=== PATIENT | female | born 1985 | race Caucasian/White ===

== ENCOUNTER 2017-02-02 15:35 | Inpatient (IN) ==
[2017-02-02 17:45] LABS: BASO% 0.2 % (0.0-0.8); EOS# 0.03 X1000 (0.0-0.7); EOS% 0.3 % (0.0-10.0); HEMATOCRIT 32.3 % (37.0-47.0); HEMOGLOBIN 9.5 g/dL (12.0-16.0); IMM GRAN# 0.01 X1000 (0.0-0.04); IMM GRAN% 0.1 % (0.0-0.5); LYMPH# 1.49 X1000 (1.2-3.4); LYMPH% 13.5 % (20.5-51.1); MANUAL DIFF NEEDED? NO; MCHC 29.4 g/dL (33-37); MCV 74.8 FL (81-99); MONO# 0.69 X1000 (0.11-0.59); MONO% 6.3 % (1.7-9.3); MPV 8.8 FL (7.4-10.4); NEUT% 79.6 % (42.2-75.2); PLT 242 X1000 (130-400); RBC 4.32 XMIL (4.2-5.4)
[2017-02-02 18:19] LABS: AGAP 10; ALBUMIN 4.2 g/dL (3.5-5.0); ALKALINE PHOSPHATASE 106 U/L (32-104); AMYLASE 1712 U/L (20-200); BUN 10 mg/dL (8-22); CALCIUM 8.8 mg/dL (8.8-10.2); CHLORIDE 105 mmol/L (98-107); COSMO 276; GOT 15 U/L (10-30); GPT 9 U/L (10-36); LIPASE 1456 U/L (13-60); POTASSIUM 3.5 mmol/L (3.5-5.1); SODIUM 139 mmol/L (136-145); TCO2 25 mmol/L (25-35)
--- NOTE | 2017-02-02 19:24 | Diag Imaging Result Doc PS360 ---
US GB < RUQ (LIMITED) - 02/02/2017 INDICATION: pancreatitis TECHNIQUE: COMPARISON: None FINDINGS: The patient is not nothing by mouth. The pancreas is obscured. The liver, gallbladder, and right kidney are normal. No mass or fluid collection. Common bile duct measures 5 mm. Aorta, IVC and main portal vein are patent. IMPRESSION: No acute disease. Electronically signed by Sly Bazan 02/02/2017 7:22 PM
[2017-02-02] MEDS ORDERED: NS 1,000 ML IV ONE (20:08)
[2017-02-03] MEDS: DILAUDID IV PRN ×5 (00:11→21:29)
[2017-02-03] MEDS ORDERED: ZOFRAN IV ONE (00:57)
[2017-02-03] MEDS: NS 1,000 ML IV SCH ×2 (06:41→16:32)
[2017-02-03] MEDS ORDERED: SODIUM CHLORIDE 0.9% INJ SCH (07:00)
[2017-02-03] MEDS: ZOSYN 3.375 GM/NS 3.375 GM/50 ML IVPB IV SCH ×3 (07:39→18:41)
[2017-02-03] MEDS: ZOFRAN IV PRN ×3 (07:39→21:30)
[2017-02-03] MEDS: PROTONIX IV SCH (07:39)
--- NOTE | 2017-02-03 07:54 | Diag Imaging Result Doc PS360 ---
ABDOMEN/PELVIS W/CONTRAST - 02/02/2017 INDICATION: pain TECHNIQUE: A CT dose reduction protocol was used. COMPARISON: Previous ultrasound FINDINGS: The lung bases are clear and the heart size is normal. There has been prior gastric sleeve procedure. No bowel obstruction or inflammation. No free air or free fluid. The main pancreatic duct at the head is somewhat prominent but otherwise the pancreas is normal. No inflammatory changes. The liver, gallbladder, spleen, adrenals, and kidneys are normal. Urinary bladder, uterus, and rectum are normal. There are moderate degenerative changes of the spine. No acute or suspicious bony lesion. IMPRESSION: No acute disease. Electronically signed by Sly Bazan 02/03/2017 7:52 AM
[2017-02-03 08:18] LABS: HEMATOCRIT 29.3 % (37.0-47.0); HEMOGLOBIN 8.6 g/dL (12.0-16.0); MCH 21.9 PG (27-31); MCHC 29.4 g/dL (33-37); MCV 74.7 FL (81-99); MPV 9.5 FL (7.4-10.4); RBC 3.92 XMIL (4.2-5.4)
[2017-02-03 08:40] LABS: AGAP 8; ALBUMIN 3.5 g/dL (3.5-5.0); ALKALINE PHOSPHATASE 93 U/L (32-104); AMYLASE 621 U/L (20-200); BUN 6 mg/dL (8-22); CALCIUM 8.3 mg/dL (8.8-10.2); CHLORIDE 105 mmol/L (98-107); COSMO 269; GOT 12 U/L (10-30); GPT 7 U/L (10-36); HDL 46 mg/dL (45-65); LDL 39 mg/dL; MAGNESIUM 1.8 mg/dL (1.5-2.7); POTASSIUM 3.4 mmol/L (3.5-5.1); SODIUM 136 mmol/L (136-145); TCO2 24 mmol/L (25-35); TOTAL PROTEIN 6.2 g/dL (6.3-8.3); TRIGLYCERIDES 89 mg/dL (35-135); VLDL 18 mg/dL
[2017-02-03 09:00] LABS: LIPASE 1549 U/L (13-60)
--- NOTE | 2017-02-03 14:31 | HISTORY AND PHYSICAL ---
CHIEF COMPLAINT: Epigastric pain and nausea. HISTORY OF PRESENT ILLNESS: This is a 31-year-old female with a history of gastric sleeve who presented to the emergency room complaining of epigastric pain radiating straight through to her back with some nausea. She states this has been present intermittently over the last 3 days. She denied any subjective fever or chills. She was found to have an amylase of 1712 with a lipase of 1456. CT of the abdomen and pelvis was ordered, which revealed no acute disease. An abdominal ultrasound revealed no acute disease. She was given IV hydration and admitted for further evaluation and treatment. PAST MEDICAL HISTORY: Obesity. PAST SURGICAL HISTORY: Gastric sleeve. SOCIAL HISTORY: She does drink alcohol. She denies tobacco or illicit drug use. ALLERGIES: No known drug allergies. HOME MEDICATIONS: Adipex 37.5 daily and Nexium 20 mg daily. REVIEW OF SYSTEMS: A 14 point review of systems is discussed with the patient with pertinent positives being stated in the HPI. She denied chest pain, palpitations, dizziness, syncope, any shortness of breath, fever, chills, black or bloody vomitus, black or bloody stools, any hematuria, dysuria, frequency, urgency. PHYSICAL EXAMINATION: GENERAL: This is a 31-year-old female who is sitting in the bed in no distress. VITAL SIGNS: Blood pressure is 146/88 with a heart rate of 74, respirations are 18, temperature is 98.5 degrees oral with room air saturations are 98-100%. HEENT: Head is normocephalic, atraumatic. Pupils equal, round, react to light. EOMs are intact. Sclerae anicteric. Mucous membranes are moist. NECK: Supple with trachea midline. CARDIOVASCULAR: Regular rate and rhythm. S1, S2 appreciated. PULMONARY: Breath sounds are clear with no increased work of breathing noted. GASTROINTESTINAL: Abdomen is soft. She has some epigastric tenderness with bowel sounds in all 4 quadrants. BACK: No CVAT. No spine tenderness. MUSCULOSKELETAL: Good range of motion of joints. EXTREMITIES: No clubbing, cyanosis, or edema. Calves are nontender. Pulses are palpable x4. NEUROLOGIC: She is alert and oriented. DIAGNOSTICS: WBC is 11 with hemoglobin 9.5, hematocrit 32.3, and platelets of 242,000. Sodium is 139, potassium 3.5, BUN 10, creatinine 0.6, with a glucose of 84. Amylase [address] of the abdomen and pelvis as well as abdominal ultrasound revealed no acute processes. ASSESSMENT AND PLAN: This is a 31-year-old female who is lying in the bed, in no distress. 1. Nausea, vomiting. 2. Pancreatitis per laboratory. 3. Leukocytosis. PLAN: She will be admitted to the hospital. She will remain nothing per oral. We will repeat labs in the morning. We will give IV hydration as well as pain and nausea control with Zofran for antibiotic coverage. I discussed with the patient causes of pancreatitis. We discussed alcohol use. She does state that she has rare social alcohol use. Further treatments pending hospital course. Dictated by GLENDY Sarkar for Juan Carlos Barnes MD cc: GLENDY Sarkar MD
--- NOTE | 2017-02-03 18:46 | PROGRESS NOTE ---
DATE: 02/03/2017 SUBJECTIVE: The patient continues to complain of nausea. She has had no vomiting. She is taking ice chips. OBJECTIVE: Vital Signs: Blood pressure is 131/76 with a heart rate of 60, respirations are 18, temperature is 97.8 degrees oral with a room air saturation of 100%. Cardiovascular: Regular rate and rhythm. S1 and S2 appreciated. Pulmonary: Breath sounds are clear with no increased work of breathing noted. Gastrointestinal: Abdomen is soft with epigastric tenderness and bowel sounds in all 4 quadrants. Extremities: No clubbing, cyanosis, or edema. Calves are nontender. Pulses are palpable x4. Neurologic: She is alert and oriented x3. DIAGNOSTICS: WBC is 5.5 with a hemoglobin of 8.6, hematocrit 29.3, and platelets of 212,000. Sodium is 136, potassium 3.4, BUN 6, creatinine 0.5 with a glucose of 84. Amylase is 621 down from 1712. Lipase is 1549 down from 1456. PROBLEM LIST: 1. Nausea and vomiting. 2. Pancreatitis per labs. 3. Leukocytosis. 4. Hypokalemia very slight. PLAN: We will continue with IV hydration, we will continue with ice chips and slowly increase her diet as tolerated. Continue with IV pain and nausea control. We will trend her labs. Further treatments pending hospital course. Dictated by GLENDY Sarkar for Juan Carlos Barnes MD cc: GLENDY Sarkar MD
[2017-02-04] MEDS: ZOSYN 3.375 GM/NS 3.375 GM/50 ML IVPB IV SCH ×4 (00:22→18:23)
[2017-02-04] MEDS: NS 1,000 ML IV SCH ×2 (03:27→13:03)
[2017-02-04] MEDS: DILAUDID IV PRN ×3 (03:27→20:47)
[2017-02-04] MEDS: ZOFRAN IV PRN ×3 (03:31→20:48)
[2017-02-04] MEDS: PROTONIX IV SCH (06:23)
[2017-02-04] MEDS: TYLENOL PO PRN ×2 (07:44→20:46)
[2017-02-04 07:59] LABS: HEMATOCRIT 31.2 % (37.0-47.0); MCH 21.8 PG (27-31); MCHC 28.8 g/dL (33-37); MCV 75.7 FL (81-99); MPV 10.1 FL (7.4-10.4); RBC 4.12 XMIL (4.2-5.4)
[2017-02-04 08:09] LABS: AGAP 9; ALBUMIN 3.6 g/dL (3.5-5.0); ALKALINE PHOSPHATASE 88 U/L (32-104); AMYLASE 120 U/L (20-200); BUN 7 mg/dL (8-22); CALCIUM 8.6 mg/dL (8.8-10.2); CHLORIDE 104 mmol/L (98-107); COSMO 266; GOT 15 U/L (10-30); GPT 7 U/L (10-36); LIPASE 110 U/L (13-60); MAGNESIUM 1.9 mg/dL (1.5-2.7); POTASSIUM 3.8 mmol/L (3.5-5.1); SODIUM 135 mmol/L (136-145); TCO2 22 mmol/L (25-35); TOTAL PROTEIN 6.5 g/dL (6.3-8.3)
--- NOTE | 2017-02-04 09:34 | PROGRESS NOTE ---
DATE: 02/04/2017 SUBJECTIVE: The patient notes that she is feeling a little bit better this morning. She is having much less nausea and vomiting. OBJECTIVE: Vital Signs: Reviewed. Temperature 98 degrees, pulse 73, respiratory rate 18, BP 122/67, saturating 98% on room air. General: Patient is awake, alert. She is currently in no respiratory distress. HEENT: Normocephalic, atraumatic. SULEIMAN. EOMI. Neck: Supple. CV: Regular rate. Chest: Clear. Abdomen: Soft. Much less tender. In fact, very minimal tenderness in the epigastric region. Positive bowel sounds. Nondistended. Extremities: Moves all extremities. Neurologic: No focal changes. Skin: Warm and dry. No rashes. ASSESSMENT: 1. Pancreatitis, uncertain etiology. Her gallbladder ultrasound, CT of the gallbladder, and triglycerides all are normal. She is adamant that she only drinks occasionally. It certainly could be that her pancreatitis is caused by Phentermine. 2. Leukocytosis, resolved. 3. Nausea and vomiting, resolved. PLAN: Her leukocytosis has resolved. Her amylase and lipase were markedly elevated on admit, 1,700 and 1,400; currently down to 120 and 110 respectively. We will advance diet from clear to soft and hopefully discharge home possibly later today but certainly by tomorrow. We will continue to follow. Further orders as needed. cc: Juan Carlos Barnes MD
[2017-02-05] MEDS: ZOSYN 3.375 GM/NS 3.375 GM/50 ML IVPB IV SCH ×3 (00:05→13:05)
[2017-02-05] MEDS: NS 1,000 ML IV SCH ×2 (00:05→13:04)
[2017-02-05] MEDS: ZOFRAN IV PRN (04:48)
[2017-02-05] MEDS: DILAUDID IV PRN (04:48)
[2017-02-05] MEDS: PROTONIX IV SCH (06:09)
--- NOTE | 2017-02-05 09:12 | Diag Imaging Result Doc PS360 ---
EXAM: CT ABD/PELVIS W/ IV CONT ONLY INDICATION: Pancreatitis/fever TECHNIQUE: Dose reduction protocol was used. COMPARISON: 02/02/2017 FINDINGS: There has been a prior gastric sleeve surgery. The pancreas appears grossly normal. The gallbladder is distended but is unremarkable, otherwise. There is a 2.3 cm left adnexal cyst. No focal inflammatory changes, free abdominal gas, or free fluid is appreciated. The remainder of the solid viscera of the abdomen and pelvis and the remainder of the GI tract is essentially stable as compared to the previous recent study. IMPRESSION: 1.2.3 cm left adnexal cyst. 2.Essentially stable as compared to the previous study, otherwise. No definite acute pathology. Electronically signed by Glen Ivan 02/05/2017 9:10 AM
--- NOTE | 2017-02-05 09:25 | PROGRESS NOTE ---
DATE: 02/05/2017 SUBJECTIVE: The patient notes she is feeling much better this morning. She is having no nausea or vomiting. No abdominal pain, although she did have a fever overnight. Denies any cough, congestion. Denies any dysuria, urinary frequency. OBJECTIVE: Vital signs: Temperature 98, pulse 67, respiratory 19, BP 119/64, saturation 99% on room air. T-max 101.3 degrees at 10 p.m. last night. HEENT: Normocephalic, atraumatic. SULEIMAN. Neck: Supple. CV: Regular rate. Chest: Clear. Abdomen: Soft, nondistended, nontender. Extremities: Moves all extremities. Neurologic: No focal changes. LABS: No current labs. ASSESSMENT: 1. Pancreatitis of unknown etiology, although likely secondary to Phentermine. 2. Nausea and vomiting, resolved. 3. Leukocytosis, resolved. 4. Fever of unknown origin. Patient currently is on Zosyn. PLAN: I had hoped to send Ms. Rea home today as last night she was tolerating eating and drinking much better. However, she did have a fever. I feel as though it is necessary to repeat a CT scan of her abdomen to prove that she does not have any type of pancreatic cyst or phlegmon. If this is negative then we will attempt to discharge her home on Augmentin, for close follow up. cc: Juan Carlos Barnes MD
[2017-02-05 11:51] VITALS: BP 132/81
--- NOTE | 2017-02-07 08:31 | DISCHARGE SUMMARY ---
ADMISSION DATE: 02/02/2017 DISCHARGE DATE: 02/05/2017 DIAGNOSES: 1. Pancreatitis of unknown etiology, likely secondary to phentermine. 2. Nausea and vomiting, resolved. 3. Leukocytosis, resolved. 4. Fever of unknown origin. DIAGNOSTICS: 02/02/2017, CT of the abdomen and pelvis revealed no acute disease. Abdominal ultrasound revealed no acute disease. Pancreas is obscured. The liver, gallbladder, and right kidney are normal. No mass or fluid collection. Common bile duct measures 5 mm with aorta IVC and main portal vein patent. 02/05/2017, CT of the abdomen and pelvis: A prior gastric sleeve surgery. Pancreas appears grossly normal. Gallbladder is distended but unremarkable. There is a 2.3 cm left adnexal cyst. No inflammatory changes, free abdominal gas, or free fluid is appreciated. HOSPITAL COURSE: Ms. Rea presented to the emergency room complaining of epigastric pain and nausea. She was found to have pancreatitis with amylase of 1712 and a lipase of 1456. She was initially n.p.o. with IV hydration, pain and nausea control. As her symptoms subsided and amylase and lipase normalized, we were able to advance her diet which she tolerated well. The nausea and vomiting did subside. DISCHARGE ASSESSMENT: Cardiovascular: Regular rate and rhythm. S1, S2 appreciated. Pulmonary: Breath sounds are clear with no increased work of breathing noted. Gastrointestinal: Abdomen is soft, nontender, nondistended. Bowel sounds in all 4 quadrants. Neurologic: She is alert and oriented x3. Cranial nerves 2-12 grossly intact. DISCHARGE MEDICATIONS: 1. Nexium 20 mg daily. 2. Phenergan 25 q.6 hours p.r.n. 3. Zofran 4 mg q.6 hours p.r.n. 4. Augmentin 875 one b.i.d. DISCHARGE ACTIVITY: As tolerated. DISCHARGE DIET: Regular. FOLLOWUP: She is to follow up with her primary care physician in the next 1-2 weeks, sooner if needed. She is being discharged home in stable condition with family members. TIME SPENT: This is a greater than 30 minute discharge. Dictated by GLENDY Sarkar for Juan Carlos Barnes MD cc: GLENDY Sarkar MD
--- NOTE | 2017-02-09 21:27 | PROVIDER DOCUMENTATION ---
This chart was entered by Mickey Yates Scribe, acting as scribe for Artem Parson MD. HPI-Abdominal Pain/GI Problem - General Chief Complaint: Epigastric Pain Stated Complaint: ABD/BACK PAIN Time Seen by Provider: 02/02/17 18:21 Source: patient, family Allergies/Adverse Reactions: Patient Allergies Allergy/AdvReac Type Severity Reaction Status Date / Time No Known Allergies Allergy Verified 01/29/17 08:05 Home Medications: Home Medication List Medication Instructions Recorded Confirmed Last Taken Type Esomeprazole Magnesium [Nexium] 20 mg PO DAILY 01/29/17 01/29/17 01/28/17 History Lidocaine 2% Viscous [Xylocaine 2% 15 ml MT Q3H PRN PRN #1 bottle 01/29/17 Unknown Rx Viscous] Phenazopyridine HCl [Pyridium] 100 mg PO TID #9 tablet 01/29/17 Unknown Rx Phentermine HCl [Adipex-P] 37.5 mg PO DAILY 01/29/17 01/29/17 01/28/17 History - History of Present Illness-ABD Nature of Presenting Problems: 31 yo F presents to the ER with complaint of epigastric pain since this AM and states the pain is worsening throughout the day. Pt also complains of lower back pain. Pt had a gastric sleeve 3 years ago. PT had the same problem last week but had a fever and N/V with it. Pt states her pain worsens with movement. Abdominal Pain Onset Location: reports: epigastric Pain Radiation: reports: back Quality of Pain: reports: dull, sharp Severity in ED: reports: mild Onset/Duration: reports: this afternoon Timing: reports: still present, getting worse Activities at Onset: reports: none Associated Symptoms: reports: back/neck pain Review of Systems - Adult - REVIEW OF SYSTEMS - ADULT Constitutional: denies: chills, fever Cardiovascular: denies: chest pain, palpitations Respiratory: denies: cough, shortness of breath Gastrointestinal: reports: see HPI, abdominal pain, constipation, nausea. denies: diarrhea, poor appetite, vomiting Musculoskeletal: reports: back pain. denies: neck pain All Other Systems: Reviewed and Negative Past History - Adult - PAST MEDICAL HISTORY-ADULT Review of Records: reports: Old Records Reviewed, Nursing Assessment Review, Medications Reviewed Major Childhood Illnesses: reports: denies history Other Conditions: reports: denies history - PRIOR SURGERIES/PROCEDURES Surgical/Procedure History: reports: none - PRIOR HOSPITALIZATIONS Prior Hospitalizations: reports: none - IMMUNIZATION STATUS Childhood Immunizations: See Nurse Assessment Flu Vaccine: See Nurse Assessment - FAMILY HISTORY Family History: reviewed, not pertinent Physical Exam-General - PHYSICAL EXAM-ADULT Initial Vital Signs Reviewed: Yes - CONSTITUTIONAL General Appearance: appears well, alert, no apparent distress - RESPIRATORY Respiratory: chest non-tender, lungs clear, normal breath sounds - CARDIOVASCULAR Cardiovascular: normal peripheral pulses, regular rate, rhythm - GASTROINTESTINAL (ABDOMEN) Abdominal Exam: normal bowel sounds, soft, tenderness - MUSCULOSKELETAL Back Exam: normal inspection, no CVA tenderness Extremity: normal range of motion, non-tender, normal gait - SKIN Integumentary: normal color, normal turgor, warm/dry Progress - PLAN OF CARE/RESULTS Progress/Plan/Lab Results: Vital Signs - 8 hr 02/02/17 16:13 Temperature 98 F Pulse Rate 91 H Respiratory Rate 18 Blood Pressure 158/88 O2 Sat by Pulse Oximetry 100 Laboratory Results - last 24 hr 02/02/17 02/02/17 17:20 17:20 WBC 11.01 H RBC 4.32 Hgb 9.5 L Hct 32.3 L MCV 74.8 L MCH 22.0 L MCHC 29.4 L RDW Std Deviation 16.1 H Plt Count 242 MPV 8.8 Immature Gran % (Auto) 0.1 Neut % (Auto) 79.6 H Lymph % (Auto) 13.5 L [place] % (Auto) 6.3 Eos % (Auto) 0.3 Baso % (Auto) 0.2 Immature Gran # (Auto) 0.01 Neut # (Auto) 8.77 H Lymph # (Auto) 1.49 [place] # (Auto) 0.69 H Eos # (Auto) 0.03 Baso # (Auto) 0.02 Sodium 139 Potassium 3.5 Chloride 105 Carbon Dioxide 25 Anion Gap 10 BUN 10 Creatinine 0.6 Estimated GFR/1.73 m2 > 60 BUN/Creatinine Ratio 17 Glucose 84 Calculated Osmolality 276 Calcium 8.8 Total Bilirubin 0.20 AST 15 ALT 9 L Alkaline Phosphatase 106 H Total Protein 7.0 Albumin 4.2 Globulin 3.0 Albumin/Globulin Ratio 2.0 Amylase 1712 H Lipase 1456 H Orders Category Date Time Status US GB < RUQ (LIMITED) [US] Stat Exams 02/02/17 18:22 Ordered AMYLASE [CHEM] Stat Lab 02/02/17 17:20 Completed CBC WITH DIFF [HEME] Stat Lab 02/02/17 17:20 Completed COMPREHENSIVE METABOLIC PANEL [CHEM] Stat Lab 02/02/17 17:20 Completed LIPASE [CHEM] Stat Lab 02/02/17 17:20 Completed Result Diagrams: 02/02/17 17:20 02/02/17 17:20 - ULTRASOUND (By Radiology) 1 US Study: Gallbladder Impression: Normal (no acute disease, pts pancreas is obscured, the liver gallbladder, and right kidney are normal.) - CONSULTS/PCP/HOSPITALIST Notification #1 *Consult/PCP/Hospitalist*: hospitalist Time Discussed: 20:13 Reason/Comments: admission Consult Disposition: Admit Departure - Departure Date of Disposition Decision: 02/02/17 Time of Disposition Decision: 20:11 DIAGNOSIS: Pancreatitis Disposition: ADMITTED INPATIENT 09 Certified Medical Emergency: Emergent Condition: Stable Additional Freetext Instructions: Patient MILENA JOHNSON, 31 F, was admitted to Emergency Department- [facility] . Patient's valuables were collected and stored in safe #. Referrals and Follow-Ups: None,PCP [Primary Care Provider] - - Critical Care Note This patient required my direct & personal management of CC.: No This chart was documented by the indicated scribe, (Mickey Yates Scribe) and accurately reflects the services I performed and decisions made by me, Artem Parson MD, as attested by the provider's signature.
== END 2017-02-05 13:10 | disposition home or self-care (01) ==
LOC: P.ED 15:35 → P.MEDSURG 15:35 → OBSVTOIN 20:55 → P.MEDSURG 21:20
PROVIDERS: ATTEND Family Medicine